=== PATIENT | female | born 1955 | race Caucasian/White ===

== ENCOUNTER 2019-04-14 13:56 | Outpatient (CLI) | payer MEDICARE, BC ==
[~2019-04-14] VITALS: Ht 165.1 cm; Wt 84.4 kg
[2019-04-14 14:36] LABS: TOTAL HEMOGLOBIN 15.9 G/dl (12.0-16.0)
[2019-04-14] MEDS ORDERED: albuterol 2.5 MG/3 ML nebule NEB PRN (14:50)
== END 2019-04-14 23:59 | disposition home or self-care (01) ==
LOC: RT 13:56
PROVIDERS: ATTEND Internal Medicine Pulmonary Disease
DX: J44.9 Chronic obstructive pulmonary disease, unspecified (principal); J98.4 Other disorders of lung; F17.210 Nicotine dependence, cigarettes, uncomplicated; Z79.899 Other long term (current) drug therapy
CPT/HCPCS: 85018; 94060; 94727; 94729; 94760

== ENCOUNTER 2021-03-09 08:56 | Day surgery (SDC) | payer MEDICARE, BC ==
[~2021-03-09] VITALS: Ht 162.6 cm; Wt 87.0 kg
[2021-03-09] VITALS (11 sets, daily range): BP systolic 101–123; BP diastolic 54–76
[2021-03-09] MEDS ORDERED: diphenhydrAMINE 25mg capsule PO PRN (09:40)
[2021-03-09] MEDS ORDERED: normal saline 1,000 ML IV SCH (09:40)
[2021-03-09] MEDS ORDERED: PARO30TA4 PO (09:41)
[2021-03-09] MEDS ORDERED: ROSU40TA22 PO (09:41)
[2021-03-09] MEDS ORDERED: FLUO20DR4 EACH EAR (09:41)
[2021-03-09] MEDS ORDERED: PROP120C2 PO (09:41)
[2021-03-09] MEDS ORDERED: UMEC1DIS INH (09:41)
[2021-03-09] MEDS ORDERED: TRIA1CAP6 PO (09:41)
[2021-03-09] MEDS ORDERED: PRAM0.5T12 PO (09:41)
[2021-03-09] MEDS ORDERED: NYSPWD TOP (09:41)
[2021-03-09] MEDS ORDERED: vitamin d3 PO (09:43)
[2021-03-09] MEDS ORDERED: Vitamin B12 PO (09:43)
[2021-03-09] MEDS ORDERED: ASPI81TA52 PO (09:43)
[2021-03-09] MEDS ORDERED: Vitamin E PO (09:44)
[2021-03-09 10:09] LABS: BASOPHILS # (AUTO) 0.1 X10'3 (0-0.2); BASOPHILS % (AUTO) 0.9 % (0-1); EOSINOPHILS # (AUTO) 0.6 X10'3 (0-0.9); EOSINOPHILS % (AUTO) 4.8 % (0-6); HEMATOCRIT 42.3 % (35.0-45.0); HEMOGLOBIN 14.2 g/dl (12.0-16.0); LYMPHOCYTES % (AUTO) 25.2 % (21-51); MEAN CORPUSCULAR HGB CONC 33.7 g/dL (33.0-36.5); MEAN CORPUSCULAR VOLUME 89.1 FL (78-98); MEAN PLATELET VOLUME 7.6 FL (7.4-10.4); MONOCYTES # (AUTO) 0.9 X10'3 (0-0.9); MONOCYTES % (AUTO) 7.3 % (2-12); NEUTROPHILS # (AUTO) 7.4 X10'3 (1.8-7.7); NEUTROPHILS % (AUTO) 61.8 % (42-75); PLATELET COUNT 331 X10'3 (140-440); RED BLOOD COUNT 4.75 X10'6 (4.20-5.60); RED CELL DISTRIBUTION WIDTH 16.2 % (11.5-14.5)
[2021-03-09] MEDS ORDERED: methylPREDNISolone sod succ 125mg/2ml vial IV ONE (10:20)
[2021-03-09 10:26] LABS: ALBUMIN 3.3 G/DL (3.4-5.0); ANION GAP 9 (8-16); BLOOD UREA NITROGEN 15 MG/DL (7-18); BUN/CREATININE RATIO 14.3 (6.6-38.0); CALCIUM 8.9 MG/DL (8.5-10.1); CHLORIDE 101 MMOL/L (99-107); CREATININE 1.05 MG/DL (0.40-0.90); GLUCOSE 133 MG/DL (70-104); MAGNESIUM 1.6 MG/DL (1.5-2.4); POTASSIUM 3.3 MMOL/L (3.5-5.1); SODIUM 139 MMOL/L (135-145); TOTAL CARBON DIOXIDE 29.3 MMOL/L (24-32); eGFR 52 ML/MIN
[2021-03-09] MEDS ORDERED: iohexol 350MG/ML 100ml bottle IV ONE (10:58)
[2021-03-09] MEDS ORDERED: LIDOcaine 1% (10mg/ml)w/preservative injection 20ml MDV ONE (10:58)
[2021-03-09] MEDS ORDERED: heparin 1,000unit/ml 10ml vial 10 ML ONE (10:58)
[2021-03-09] MEDS ORDERED: midazolam 1 mg/ML 2ml injection ONE (10:58)
[2021-03-09] MEDS ORDERED: fentaNYL/PF 50MCG/1 ML 2ML syringe ONE (10:58)
[2021-03-09] MEDS ORDERED: clopidogrel 300mg tablet ONE (12:13)
[2021-03-09] MEDS ORDERED: ondansetron/PF 4mg/2ml inj ONE (12:30)
[2021-03-09] MEDS ORDERED: proCHLORperazine 10 MG/2 ml inj IV PRN (13:00)
[2021-03-09] MEDS ORDERED: HYDROcodone/acetaminophen 10/325mg tab PO PRN (13:00)
[2021-03-09] MEDS ORDERED: ondansetron/PF 4mg/2ml inj IV PRN (13:00)
[2021-03-09] MEDS ORDERED: HYDROcodone/acetaminophen 5mg/325mg tablet PO PRN (13:00)
[2021-03-09] MEDS ORDERED: potassium Cl 20 mEq SR tablet PO ONE (14:25)
== END 2021-03-09 16:10 | disposition home or self-care (01) ==
LOC: SSTAY O 08:56
PROVIDERS: ATTEND Internal Medicine Cardiovascular Disease
DX: I70.208 Unspecified atherosclerosis of native arteries of extremities, other extremity (principal); I10 Essential (primary) hypertension; E78.5 Hyperlipidemia, unspecified; M19.90 Unspecified osteoarthritis, unspecified site; F32.9 Major depressive disorder, single episode, unspecified; Z98.890 Other specified postprocedural states; Z79.899 Other long term (current) drug therapy; Z82.3 Family history of stroke; Z83.3 Family history of diabetes mellitus
CPT/HCPCS: 36415; 37236; 80048; 83735; 85025; 85610; 93005; 99152; 99153; C1725; C1760; C1769; C1876; C1887; C1894; J1644; J2001; J2250; J2405; J2930; J3010; J7030; Q0163; Q9967; A4620; A6258